=== PATIENT | female | born 1985 | race Two or more races ===

== ENCOUNTER 2024-07-23 02:00 | Emergency (ER) | payer OTHER ==
[~2024-07-23] VITALS: Ht 165.1 cm; Wt 85.7 kg
[2024-07-23] MEDS ORDERED: METOCLOPRAMIDE HCL 10 MG/2 ML VIAL ONE (03:02)
[2024-07-23] MEDS ORDERED: KETOROLAC TROMETHAMINE 15 MG INJ ONE (03:03)
[2024-07-23] MEDS: METOCLOPRAMIDE HCL 10 MG/2 ML VIAL IV ONE (03:05)
[2024-07-23] MEDS: IV NORMAL SALINE 1000 ML BAG IV ONE ×2 (03:05→04:11)
[2024-07-23] MEDS: KETOROLAC TROMETHAMINE 15 MG INJ IVP ONE (03:06)
[2024-07-23 03:08] LABS: BASOPHILS # (AUTO) 0.1 K/UL (0.0-0.2); BASOPHILS % (AUTO) 0.4 % (0.0-2.0); EOSINOPHILS # (AUTO) 0.1 K/uL (0.0-0.7); EOSINOPHILS % (AUTO) 0.4 % (0.0-7.0); HEMATOCRIT 41.3 % (31.2-41.9); HEMOGLOBIN 13.7 g/dL (10.9-14.3); LYMPHOCYTES # (AUTO) 1.7 K/uL (0.8-4.8); LYMPHOCYTES % (AUTO) 12.5 % (20.5-51.5); MEAN CORPUSCULAR HEMOGLOBIN 27.4 uug (24.7-32.8); MEAN CORPUSCULAR HGB CONC 33 g/dL (32.3-35.6); MEAN CORPUSCULAR VOLUME 82.9 fL (75.5-95.3); MONOCYTES # (AUTO) 0.4 K/uL (0.1-1.30); MONOCYTES % (AUTO) 3.3 % (0.0-11.0); NEUTROPHILS # (AUTO) 11.2 K/uL (1.8-8.9); NEUTROPHILS % (AUTO) 83.4 % (38.5-71.5); PLATELET COUNT (AUTO) 199 K/uL (179-408); RED BLOOD CELL COUNT(AUTO) 4.99 MIL/uL (3.63-4.92); RED CELL DISTRIBUTION WIDTH 13.4 % (12.3-17.7); WHITE BLOOD COUNT (AUTO) 13.4 K/uL (3.8-11.8)
[2024-07-23 03:17] LABS: CALCIUM 8.6 mg/dL (8.5-10.1); CARBON DIOXIDE 23 mmol/L (21-32); CHLORIDE 104 mmol/L (98-107); CREATININE 0.3 mg/dL (0.6-1.3); GLUCOSE 98 mg/dL (74-106); POTASSIUM 4.3 mmol/L (3.5-5.1); SODIUM SERUM 136 mmol/L (136-145); UREA NITROGEN, BLOOD 12 mg/dL (7-18)
[2024-07-23 03:23] LABS: ALANINE AMINOTRANSFERASE 22 U/L (14-59); ALBUMIN 3.1 g/dL (3.4-5.0); ALKALINE PHOSPHATASE 82 U/L (50-136); ASPARTATE AMINOTRANSFERASE 15 U/L (15-37); BILIRUBIN,DIRECT 0.1 mg/dL (0.0-0.2); BILIRUBIN,TOTAL 0.5 mg/dL (0.2-1.0); LIPASE 21 U/L (16-77)
[2024-07-23 03:29] LABS: PREGNANCY TEST SERUM QUAN < 1 miul/L (0-6)
[2024-07-23] MEDS ORDERED: ONDANSETRON 4 MG/2 ML VIAL ONE ×2 (03:39→05:14)
[2024-07-23] MEDS: ONDANSETRON 4 MG/2 ML VIAL IV ONE ×2 (03:40→05:16)
[2024-07-23 03:47] LABS: *BILIRUBIN,URIN NEGATIVE (NEGATIVE); *BLOOD, URINE NEGATIVE (NEGATIVE); *CLARITY,URINE CLEAR (CLEAR); *COLOR,URINE YELLOW (YELLOW); *KETONES,URINE 1+ (NEGATIVE); *PROTEIN,URINE 1+ (NEGATIVE); *UROBILINOGEN,URINE 0.2 E.U./dl (NORMAL); LEUKOCYTE ESTERASE ,URINE NEGATIVE (NEGATIVE); NITRITE, URINE NEGATIVE (NEGATIVE); PH,URINE 8.5 (5.0-8.0); UGLUCOSE NEGATIVE (NEGATIVE)
[2024-07-23 03:57] LABS: BACTERIA,URINE FEW /HPF (NONE SEEN); RBC,URINE NONE SEEN /HPF (0-3); SQUAMOUS EPITHELIAL CELL,UR FEW /HPF (NONE SEEN); WBC,URINE NONE SEEN /HPF (0-3)
[2024-07-23 03:58] LABS: URINE AMORPHOUS URATE MODERATE /HPF
[2024-07-23] MEDS ORDERED: ONDA4TAB11 PO (05:03)
[2024-07-23 05:09] VITALS: BP 145/89; O2SAT 95
== END 2024-07-23 05:16 | disposition home or self-care (01) ==
LOC: ER 02:00
DX: R11.2 Nausea with vomiting, unspecified (principal); E86.0 Dehydration; M25.572 Pain in left ankle and joints of left foot; R10.2 Pelvic and perineal pain
CPT/HCPCS: 99285; 96374; 96375; 96361; 80076; 80048; 81001; 83690; 85025; 84484; 84702; 36415; 73600; 93005; 96376; J1885; J2765; J2405 ×2; J7040 ×2; A4606; A4663